=== PATIENT | female | born 1960 | race Caucasian/White ===

== ENCOUNTER → 2018-04-04 | Outpatient (CLI) | payer OTHER ==
[~2018-04-04] MED LIST: ALPRAZOLAM; AMBIEN; CELEXA; OXYCONTIN10 M1; PERCOCET 10-321 EACH; SOMA250 MG
== END ==
LOC: M.RAD 16:39
DX: R06.02 Shortness of breath (principal)

== ENCOUNTER → 2018-06-22 | Outpatient (CLI) | payer OTHER | LOC: M.RAD 10:39 | DX: M77.31 Calcaneal spur, right foot (principal) ==

== ENCOUNTER → 2019-04-05 | Outpatient (CLI) | payer OTHER ==
--- NOTE | ~2019-04-05 | EEG ---
[address] [address] EEG STUDY REPORT Name: KYLIE QUAN Room: [facility]#: [id number] Admission: 04/05/19 Attend Phys: Alexis Spencer MD Discharge: Date of : 62 Report #: [id number] THIS REPORT FOR: //name// CC: Lety Spencer DATE OF SERVICE: 04/05/2019 This patient is being evaluated for an episode of syncope. The patient's EEG was done by placing the electrode by standard 10-20 system of electrode placement. Both referential and sequential montages were used for recording. Background activity in this patient's EEG is about 11 Hz and 30 microvolt. The patient went to sleep that is associated with bilaterally symmetrical sleep spindle and vertex sharp waves. Throughout the record, no active epileptiform activity was noticed. Photic stimulation was unremarkable. IMPRESSION: This patient's EEG is within normal limits. Thank you very much for this referral. By: [id number] Spencer MD /nt
== END ==
LOC: M.CRD 03-29 15:00 → M.MRI 10:49
DX: G45.9 Transient cerebral ischemic attack, unspecified (principal); R55 Syncope and collapse; R42 Dizziness and giddiness; M54.9 Dorsalgia, unspecified; G89.29 Other chronic pain